=== PATIENT | female | born 1970 | race Caucasian/White ===

== ENCOUNTER 2016-11-24 10:22 | Emergency (ER) | payer OTHER ==
[~2016-11-24] VITALS: Ht 171.4 cm; Wt 67.3 kg
[2016-11-24 10:33] VITALS: BP 133/73; PULSE 120; RESP 20; O2SAT 100
--- NOTE | 2016-11-24 10:40 | ED.REPORT ---
HPI-Dyspnea / Wheezing Date of Service Nov 24, 2016 ED Provider: Frances Damico MD The pt is a 46 y/o female w/ a hx of asthma, GERD, HTN, and chronic sinus infections presenting to the ED complaining of a fast heart rate. She describes experiencing a HR of 133 today while watching TV but being able to get it down to 103 using biofeedback. She is also experiencing SOB, chest pain in the area of her trachea, a productive cough w/ green and yellow sputum as well as blood in her sputum occasionally. The pt did not take her Prednisone medication this morning because she was unsure if she would receive a treatment here in the ED. She reports using her ProAir every 6 hours regularly. The pt reports spending an extensive amount of time outside 9 days ago, began experiencing chest tightness and difficulty breathing similar to her asthma attacks in the past, took a dose of ProAir medication and began feeling better. The following day she woke up w/ no voice and decided to go to urgent care. She was offered a dose of Prednisone but refused due to the potential side effects, but then returned to 4 days later to receive the prednisone. also gave her Ciprofloxacin for the sinus pressure she was experiencing. Nursing Notes Stated Complaint: ASTHMA Chief Complaint: Rapid heart rate Nursing Notes Reviewed: Yes Allergies: Coded Allergies: Penicillins (Verified Allergy, Intermediate, RASH, 11/24/16) azithromycin (Verified Adverse Reaction, Intermediate, 11/24/16) cefdinir (Verified Adverse Reaction, Intermediate, 11/24/16) sulfamethoxazole (Verified Adverse Reaction, Intermediate, VOMITTING, 11/24) trimethoprim (Verified Adverse Reaction, Intermediate, VOMITTING, 11/24/16) General Time Seen by MD: 10:40 Chief Complaint Other (Rapid heart rate) Hx Obtained From: Patient, Other family... (Mother) Arrived By: Walk-in Sudden in Onset?: Yes Onset Occurred: 1 - 4 hours ago Symptom Duration: Since onset Recent Healthcare: No recent hospitalization, Recent doctor visit Similar Sx Previous: Yes Past Medical History Past Medical History GERD Asthma Chronic sinus infections IBS Mononucleosis HTN Past Surgical History Adenoidectomy Reports: Tonsillectomy Smoking History Unknown if Ever Smoker Social History Alcohol Use: "Social" Other Social History: Good social support Ambulatory Status Independent Review of Systems Rapid heart rate; Chest pain in the area of her trachea; Sinus "pressure"; Respiratory: Reports: Prod cough, bloody, Prod cough, green, Prod cough, yellow , Shortness of breath Complete sys rev & neg: except as marked. Physical Exam Initial Vital Signs Vital Signs (First) Date Time Temp Pulse Resp B/P Pulse Ox O2 Delivery O2 Flow Rate FiO2 11/24/16 10:33 36.9 120 20 133/73 100 Room Air Initial VS: Reviewed Head / Eyes: Atraumatic, Normocephalic, PERRL ENT: Mucous membranes moist, Conjunctiva normal, No scleral icterus Extremities: Vascular intact, Neuro intact, No swelling, No tenderness Skin: Warm, Dry, No cyanosis Neurologic: Alert, Oriented, Nonfocal Psychiatric: Mood/affect normal, Behavior normal, Normal thought content General/Constitutional: Awake, Alert Neck: Atraumatic, Supple, Full range of motion Respiratory / Chest: Atraumatic, Breath sounds NL, Breath sounds = bilat Cardiovascular: Heart rate NL, Regular rhythm, Heart sounds NL Interpretation & Diagnostics Lab Results Interpretation Test 11/24/16 11:45 D-Dimer < 0.50mg/L FEU (<0.50) Re-Eval/Medical Decision Source of Hx: Old records Re-Evaluation/Progress : Time of Eval: 13:20 Re-Evaluation/Progress Note: Pt rechecked. Informed pt of plan for treatment. Pt understands and agrees with plan for treatment. F/U instructions and RTER warnings given. All questions addressed. Counseled Regarding: Diagnosis, Lab results, Need for follow-up, When/why to return to ED Discharge & Departure Impression: Primary Impression: Cough Disposition: Home Discharge Condition All VS Reviewed: Yes Condition: Stable Patient Instructions: Acute Cough (ED), Asthma (ED) Additional Instructions: I recommend you stop taking the Prednisone and Cipro you were given. I prescribed you cough medicine but you should avoid driving while using the medication. Use albuterol if you find that effective. Follow-up with your doctor upon return home. It is safe you to fly but I strongly recommend you wear a mask to protect the other passengers. Scribe Attestation Portions of this note were transcribed by Rj Wong. I, Dr. Daniels personally performed the history, physical exam and medical decision-making; I reviewed and confirmed the accuracy of the information in the transcribed note. Mookie Daniels MD Nov 24, 2016 10:40 jR Wong Nov 24, 2016 11:55
[2016-11-24 12:27] VITALS: BP 115/60; PULSE 70; RESP 15; O2SAT 95
[2016-11-24] MEDS ORDERED: GUAI10LI PO (13:40)
[2016-11-24 13:53] VITALS: BP 130/73; PULSE 89; RESP 14; O2SAT 100
== END 2016-11-24 13:54 | disposition home or self-care (01) ==
LOC: SED 10:22
DX: R05 Cough (principal); J45.909 Unspecified asthma, uncomplicated; K21.9 Gastro-esophageal reflux disease without esophagitis; I10 Essential (primary) hypertension; Z88.0 Allergy status to penicillin; Z88.1 Allergy status to other antibiotic agents; Z88.2 Allergy status to sulfonamides; Z88.8 Allergy status to other drugs, medicaments and biological substances